=== PATIENT | female | born 1985 | race Caucasian/White ===

== ENCOUNTER → 2017-04-12 | Outpatient (CLI) | payer OTHER ==
--- NOTE | 2017-04-12 14:57 | US ---
EXAMINATION TYPE: US OB <= 14 wk fetus DATE OF EXAM: 04/12/2017 COMPARISON: NONE CLINICAL HISTORY: Z36 Confirm Dates. pt states complicated medical history involving chemotherapy; ir regular cycles, confirm dates EXAM PERFORMED: Transabdominal (TA) pelvic ultrasound. EXAM MEASUREMENTS: GESTATIONAL AGE / DATING Physician Established: not established yet Dates by LMP: uncertain lmp Dates by First Scan: no previous scan Dates by Current Scan for: (14 weeks/0 days) EDC: 10/11/2017 MATERNAL ANATOMY Uterus: 10.2 x 9.5 x 12.6cm Right Ovary: 4.5 x 1.6 x 2.7cm Left Ovary: 2.7 x 1.6 x 2.3cm Post CDS / Adnexa: wnl Presence of free fluid: no free fluid seen GESTATION / SURVEY CRL: 8.0cm (14 weeks/0 days) MSD: wnl Yolk Sac (normal less than 6mm): not seen Heart Rate: 161 bpm Rhythm: Normal IUP: Viable IUP Single live intrauterine gestation is confirmed as gestational sac and pole are seen. Yolk sac is not clearly identified. No free fluid is seen in pelvic cul-de-sac. Both ovaries are present. No concerning extraovarian adnexal masses are seen. IMPRESSION: Single live intrauterine gestation is confirmed, mean crown-rump length is 8.0 cm corresponding to a 14 week 0 day old fetus.
[2017-04-12 15:04] LABS: Glucose 86 mg/dL (74-99); Non-African American GFR(MDRD) >60 (>60 ml/min/1.73 sqM)
[2017-04-12 15:07] LABS: Appearance,Urine Clear (Clear); Bilirubin,Urine Negative (Negative); Glucose,Urine (UA) Negative (Negative); Ketones,Urine Negative (Negative); Leukocyte Esterase,Urine Negative (Negative); Nitrite,Urine Negative (Negative); PH, Urine 6.5 (5.0-8.0); Protein,Urine Negative (Negative); Specific Gravity,Urine 1.006 (1.001-1.035); UA Billing (MACRO vs. MICRO) CHEM; Urobilinogen,Urine <2.0 mg/dL (<2.0)
[2017-04-12 15:10] LABS: CHCM 34.3; HCT 40.5 % (34.0-46.0); HDW 2.31; HGB 13.8 gm/dL (11.4-16.0); MCH 31.9 pg (25.0-35.0); MCV 93.6 fL (80.0-100.0); RBC 4.32 m/uL (3.80-5.40); RDW 13.4 % (11.5-15.5); WBC 8.5 k/uL (3.8-10.6)
[2017-04-12 15:35] LABS: Hepatitis B Surface Ag Index 0.05
[2017-04-13 05:01] LABS: Toxoplasma Antibody (IgG) <3.0 IU/mL (<7.2)
[2017-04-13 07:30] LABS: HIV-1/HIV-2 Ab Screen NONREAC (NON REAC)
== END | disposition home or self-care (01) ==
LOC: RADUSWWP 13:43
PROVIDERS: ATTEND Obstetrics & Gynecology
DX: O26.811 Pregnancy related exhaustion and fatigue, first trimester (principal); R53.83 Other fatigue; Z3A.00 Weeks of gestation of pregnancy not specified
CPT/HCPCS: 36415; 76801; 81003; 82565; 82947; 85027; 86762; 86777; 86778; 86780; 86850; 86900; 86901; 87340; 87389

== ENCOUNTER → 2017-05-15 | Outpatient (CLI) | payer OTHER ==
[2017-05-16 08:23] LABS: Alpha Fetoprotein (M.O.M) 0.78 (Negative); B-HCG (M.O.M.) 0.64; Gestational Age (days) 5; Human Chorionic Gonadotropin 15.1 IU/mL; Inhibin A (M.O.M.) 1.34; Interpretation SeeBelow; Maternal Age at EDD (Yrs) 31; Smoker No; Unconjugated Estriol (M.O.M.) 1.06
== END | disposition home or self-care (01) ==
LOC: LABWHC1 17:24
PROVIDERS: ATTEND Obstetrics & Gynecology
DX: Z34.02 Encounter for supervision of normal first pregnancy, second trimester (principal); Z3A.00 Weeks of gestation of pregnancy not specified
CPT/HCPCS: 36415; 82105; 82677; 84702; 86336

== ENCOUNTER → 2017-07-18 | Outpatient (CLI) | payer OTHER | END | disposition home or self-care (01) | LOC: LABWHC1 17:31 | PROVIDERS: ATTEND Internal Medicine Endocrinology, Diabetes & Metabolism | DX: E03.8 Other specified hypothyroidism (principal) | CPT/HCPCS: 36415; 84443 ==

== ENCOUNTER 2017-08-25 13:39 | Observation (INO) | payer OTHER ==
--- NOTE | 2017-08-25 14:36 | XR ---
EXAMINATION TYPE: XR chest 2V DATE OF EXAM: 08/25/2017 COMPARISON: NONE HISTORY: Shortness of breath TECHNIQUE: Frontal and lateral views of the chest are obtained. FINDINGS: There is no focal air space opacity, pleural effusion, or pneumothorax seen. The cardiac silhouette size is within normal limits. The osseous structures are intact. IMPRESSION: No acute cardiopulmonary process.
[2017-08-25] MEDS ORDERED: methylPREDNISolone SOD SUCCI 125 MG/2 ML VIAL IV SCH (14:45)
[2017-08-25] MEDS: SODIUM CHLORIDE 0.9% 1,000 ML IV SCH (14:53)
[2017-08-25 15:34] LABS: Basophils % (A) 0 %; CH 29.3; CHCM 31.5; Eosinophils % (A) 0 %; HCT 38.1 % (34.0-46.0); HDW 2.84; HGB 12.2 gm/dL (11.4-16.0); Hypochromasia Slight; Luc # (Auto) 0.08; Luc % (Auto) 1; Lymphocytes # (A) 1.2 k/uL (1.0-4.8); Lymphocytes % (A) 11 %; MCHC 32.1 g/dL (31.0-37.0); Mean Platelet Volume 8.6; Monocytes # (A) 0.2 k/uL (0-1.0); Monocytes % (A) 2 %; Neutrophils # (A) 9.2 k/uL (1.3-7.7); Neutrophils % (A) 85 %; RBC 4.09 m/uL (3.80-5.40); RDW 13.2 % (11.5-15.5); WBC 10.7 k/uL (3.8-10.6); WBC (Perox) 11.76
[2017-08-25 15:37] LABS: MCV 93.3 fL (80.0-100.0)
[2017-08-25 15:54] VITALS: BP 125/75; RESP 18; TEMP 98; BMI 24.1
[2017-08-25] MEDS: IPRATROPIUM-ALBUTEROL 3 ML NEB INHALATION SCH ×2 (17:35→21:02)
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
[2017-08-25] MEDS ORDERED: guaiFENesin-DM 100-10MG/5ML 10 ML CUP PO PRN (19:36)
[2017-08-25] MEDS: FORMOTEROL FUMARATE 20 MCG/2 ML NEBU INHALATION SCH (21:02)
[2017-08-25] MEDS: BUDESONIDE 1 MG/2 ML NEBU INHALATION SCH (21:02)
[2017-08-25] MEDS: methylPREDNISolone SOD SUCCI 125 MG/2 ML VIAL IV SCH (21:03)
[2017-08-26] MEDS: methylPREDNISolone SOD SUCCI 125 MG/2 ML VIAL IV SCH ×3 (06:25→18:08)
[2017-08-26] MEDS: TIROSINT 50 MCG PO SCH (06:25)
[2017-08-26] MEDS: IPRATROPIUM-ALBUTEROL 3 ML NEB INHALATION SCH ×4 (08:22→21:07)
[2017-08-26] MEDS: BUDESONIDE 1 MG/2 ML NEBU INHALATION SCH ×2 (08:22→21:07)
[2017-08-26] MEDS: FORMOTEROL FUMARATE 20 MCG/2 ML NEBU INHALATION SCH ×2 (08:22→21:06)
--- NOTE | 2017-08-26 10:53 | P.PN ---
Progress Note - Text Progress Note Date: 08/26/17 Overall Christine is doing better. She still has a dry cough and some difficulty in breathing when her asthmatic bronchitis flares up but overall with the breathing treatments she feels significantly improved. We are awaiting a pulmonology consultation and when they feel she is stable for discharge will plan to discharge her to home likely with breathing treatments. I spent at least 15 minutes with Christine and her answering questions ranging from her breathing issues to labor process and she feels much more comfortable and reassured with the process of what decisions are going to be made moving forward. Her vital signs are otherwise stable and she is pulse ox 99%. Her heart is regular lungs continued to have a wheeze. heart tones been reactive in the 120s to 140s. Assessment intrauterine at 33 weeks. Asthmatic bronchitis. Plan continue care and await pulmonology consultation.
[2017-08-26] MEDS: IPRATROPIUM-ALBUTEROL 3 ML NEB INHALATION PRN ×2 (13:23→18:21)
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
[2017-08-26] MEDS: AZITHROMYCIN 250 MG TAB PO SCH (15:45)
[2017-08-26] MEDS: MONTELUKAST 10 MG TAB PO SCH (21:12)
[2017-08-26] MEDS: SODIUM CHLORIDE 0.9% 1,000 ML IV SCH (21:21)
[2017-08-27] MEDS: methylPREDNISolone SOD SUCCI 125 MG/2 ML VIAL IV SCH ×4 (00:16→18:55)
[2017-08-27] MEDS ORDERED: guaiFENesin SYRUP 100MG/5ML 200 MG/10 ML CUP PO PRN (01:22)
[2017-08-27] MEDS: guaiFENesin-Coden 100-10MG/5ML 10 ML CUP PO PRN ×4 (02:28→23:21)
[2017-08-27] MEDS: ACETAMINOPHEN TAB 325 MG TAB PO PRN ×4 (02:28→21:12)
[2017-08-27] MEDS: IPRATROPIUM-ALBUTEROL 3 ML NEB INHALATION PRN (04:10)
[2017-08-27] MEDS: TIROSINT 50 MCG PO SCH (06:31)
[2017-08-27] MEDS: FORMOTEROL FUMARATE 20 MCG/2 ML NEBU INHALATION SCH ×2 (07:26→19:55)
[2017-08-27] MEDS: BUDESONIDE 1 MG/2 ML NEBU INHALATION SCH ×2 (07:26→19:55)
[2017-08-27] MEDS: IPRATROPIUM-ALBUTEROL 3 ML NEB INHALATION SCH ×4 (07:26→19:55)
[2017-08-27] MEDS: SODIUM CHLORIDE 0.9% 1,000 ML IV SCH (10:27)
--- NOTE | 2017-08-27 13:19 | P.PN ---
Progress Note - Text Progress Note Date: 08/27/17 Patient overall from breathing standpoint appears better. She still has extreme wheeze and is requiring breathing treatments every 6 hours. Pulmonary has seen her this morning and believe she'll be here for 1-2 more days. We had a long discussion between she and her about use of number opioids and in general. A maps was run and it was found that she has filled since May 31 110 MS Contin's and to her and 70 Percocets as well as a few Tylenol No. 3 when she had a tooth problem. She has again assured me that she is taking them only intermittently and is now aware of the risks specifically with MS Contin particular if she is not taking them on a continuous basis she should not take them at all. She will discuss this further with her neurologist. She relates that she has been seeing him the entire time during on a monthly basis. She states that she did continue to refill the prescriptions because she was worried that they will stop prescribing them if she would if she does not continue to refill them and when she needed something for pain she felt it was better to have the medication near her or in the house rather than having to try and contact somebody for an emergency dose. A urine drug screen was done showing THC, opioids, as well as amphetamines. Amphetamine 's could be from a number of other medication she's been taking however since difficult to say if she denies taking any amphetamine-like products. She denies taking any other medicines or illicit substances at this time again. Assessment intrauterine at 33-1/2 weeks. Plan continue care for from respiratory standpoint improve her asthmatic bronchitis and plan discharged home in the next few days.
--- NOTE | 2017-08-27 13:45 | PN ---
PROGRESS NOTE Carmelita Schuster is a 32-year-old female who is about 33 weeks . I was called to see her because of an" asthma exacerbation". She did have childhood asthma, which was primarily exercise-induced. More recently, she has been having increasing shortness of breath. This seemed to reach peak for the last couple weeks or so. She has chest tightness, wheezing, cough and shortness of breath. Coughing up some phlegm. She is not sure what triggered it, possibly the colder weather and/or some environmental allergens such as ragweed or [place]. She also apparently has her boyfriend or significant other's cat and that has seemed to bother her more recently. The patient is doing much better today. She is feeling much better. She was placed on DuoNeb q.i.d. p.r.n. as well as formoterol and Pulmicort 1 mg twice a day. We also gave her Solu-Medrol 60 mg q.6h and I also added Singulair 10 mg at bedtime. Anyway the patient is not ready for discharge nor is she back to baseline. She also has a history of small-vessel vasculitis for which she was treated for corticosteroids and mycophenolate mofetil for quite a long period of time. In addition, she has a history of hypothyroidism. She has a previous history of Graves disease and some chronic back issues as well as some motor sensory abnormalities to the left leg. PHYSICAL EXAMINATION: Current vital signs include temperature 98, heart rate 88, respiratory rate 18, blood pressure 125/75, room air saturation 99%. Mean arterial pressure is 91. Appears in no acute distress. HEENT examination is grossly unremarkable. Mucous membranes are moist. No oral lesions. Neck is supple. Cardiovascular examination reveals regular rhythm and rate. S1, S2 normal. No murmur. Lungs reveal some expiratory wheezes and rhonchi. Breath sounds are improved. There is better aeration. There is prolongation on forced maneuver. She wheezes and coughs on forced maneuver. Abdomen reveals a gravid uterus. No tenderness. Bowel sounds are heard. Extremities are intact. No edema. Skin without rash. Neurologic examination is brief but nonfocal. LABORATORY DATA: No significant labs noted except for drug screen was done. Shows to be positive for opiates, amphetamines and marijuana. Microbiology is negative. Medications are reviewed. Chest x-ray was reviewed. ASSESSMENT: 1. Asthma exacerbation complicated by by purulent tracheobronchitis. 2. Intrauterine , 33 weeks. 3. History of acute bronchitis. 4. Hypothyroidism. 5. Small-vessel vasculitis. PLAN: We will continue to follow. No additional recommendations were made. Prognosis is guarded. MMODL / IJN: [id number] /
[2017-08-27] MEDS: AZITHROMYCIN 250 MG TAB PO SCH (17:01)
[2017-08-27] MEDS: MONTELUKAST 10 MG TAB PO SCH (21:12)
[2017-08-28] MEDS: methylPREDNISolone SOD SUCCI 125 MG/2 ML VIAL IV SCH ×3 (00:34→12:40)
[2017-08-28] MEDS: ACETAMINOPHEN TAB 325 MG TAB PO PRN ×3 (01:13→12:49)
[2017-08-28] MEDS: IPRATROPIUM-ALBUTEROL 3 ML NEB INHALATION PRN (04:12)
[2017-08-28] MEDS: guaiFENesin-Coden 100-10MG/5ML 10 ML CUP PO PRN ×2 (05:03→12:48)
[2017-08-28] MEDS: TIROSINT 50 MCG PO SCH (06:34)
[2017-08-28] MEDS: IPRATROPIUM-ALBUTEROL 3 ML NEB INHALATION SCH ×3 (08:35→15:53)
[2017-08-28] MEDS: FORMOTEROL FUMARATE 20 MCG/2 ML NEBU INHALATION SCH (08:35)
[2017-08-28] MEDS: BUDESONIDE 1 MG/2 ML NEBU INHALATION SCH (08:35)
[2017-08-28] MEDS ORDERED: CYANOCOBALAMIN 1,000 MCG/ML 1 ML VIAL IM ONE (08:47)
--- NOTE | 2017-08-28 09:12 | P.PN ---
Progress Note - Text Progress Note Date: 08/28/17 Christine appears about the same today as yesterday. Still having some wheezing she is seen during her breathing treatments her breathing is relatively good at this time however. She does complain of increasing pressure and some lateral pain on her uterus consistent with round ligament pain with C no contractions on monitor we had her monitored in the babies had reactive NSTs in the 140s. She is scheduled to see MFM tomorrow we will speak with them probably today or tomorrow morning and likely reschedule that appointment as needed. We'll defer decisions on discharge and progress to pulmonology. From an obstetrical standpoint at this time she is relatively stable. She is still very high risk and at 33-1/2 weeks significantly premature as well. Continue current care.
[2017-08-28 16:00] VITALS: PULSE 92
--- NOTE | 2017-08-28 18:03 | P.PN ---
Subjective Progress Note Date: 08/28/17 This is a very pleasant 32-year-old female who is about 33 weeks . She' s been just one time. She was admitted by the [facility] [employer] [employer] doctor. She came in with appears to be an asthma attack. She apparently had asthma as a child. She had exercise-induced asthma. More recently, she's been having difficulty with her breathing. Over the last week or so, she had a full-blown asthma exacerbation. She had chest tightness wheezing coughing and shortness of breath. Not bringing up much or any phlegm. Not sure exactly what triggered it. Prior to this her asthma has been relatively inactive. Anyway the patient's currently in the hospital. We are asked to see her. Yesterday we prescribed her albuterol and ipratropium bromide along with formoterol and budesonide. We also put her on Solu-Medrol. The patient seemed be doing a lot better but certainly not anywhere close to being discharged. The patient has a history of small vessel vasculitis as well as a history of hypothyroidism hypothyroidism. In addition, she has a history of Graves' disease. She also some chronic back issues and some issues with a sensory/motor deficit to her left lower extremity. She is a lifelong nonsmoker. Has been seen in the past at the [facility] in [place]. There she was being treated with a drug called CellCept for her small vessel vasculitis. On 08/28/2017 I'm seeing this patient for a follow-up. She is feeling better , less short of breath compared to yesterday. She continues to have some limited congested cough yet overall the patient is feeling much better. No fever chills or night sweats. No hemoptysis no pleurisy. She is at her 34th week of gestation. She is a smoker and she claims that she has not smoked since her . Her urine drug screen was positive for amphetamines and THC. Overall condition is improved and I think she is good to go from the pulmonary standpoint as long as there is no other [employer] Objective - Vital Signs Vital signs: Vital Signs Temp 98.0 F 08/25/17 13:59 Pulse 92 08/28/17 16:10 Resp 18 08/25/17 13:59 BP 125/75 08/25/17 13:59 Pulse Ox - Exam No acute distress, oriented 3. HEENT examination is grossly unremarkable. Mucous membranes are moist. No oral lesions. Neck supple. Full range of motion. No adenopathy thyromegaly or neck vein distention. Cardiovascular examination reveals regular rhythm rate. S1-S2 normal. No S3 or S4. No discernible murmur noted. Lungs reveal coarse inspiratory and expiratory rhonchi and wheezes. Breath sounds are diminished. This prolongation on forced maneuver. The patient wheezes and coughs on forced maneuver.. Abdomen soft and bowel sounds are heard. The patient obviously is and has a gravid uterus. Extremities are intact. No cyanosis clubbing or edema. Skin is without rash or lesion. Neurologic examination is brief but nonfocal. - Labs CBC & Chem 7: 08/25/17 14:51 Assessment and Plan Plan: Assessment 1 acute rhonchi to 6 exacerbating an underlying asthmatic disorder, improving. Chest x-rays clear. The patient on Zithromax and IV Solu-Medrol. 2 intrauterine at her 34th week of gestation 3 hypothyroidism 4 history of small vessel vasculitis maintained on CellCept on outpatient basis 5 marijuana smoking Plan The patient can be discharged home on a prednisone burst taper and a course of Zithromax to complete a total of 5 day course. We will arrange a home nebulizer for this patient. The patient will utilize a little neb last treatment on an as-needed basis. Contact back there be any difficulty breathing following her discharge. She is clear for discharge from a pulmonary standpoint. Please obtain a clearance from Dr. Pagan to make sure the patient has no [employer] related issues or needs.
--- NOTE | 2017-09-01 09:04 | P.DS ---
Providers Date of admission: 08/25/17 13:39 Expected date of discharge: 08/28/17 Attending physician: Kevin Dalal Consults: 08/25/17 14:24 Consult Physician Stat Consulting Provider: Silvestre Montejo Consult Reason/Comments: Acute asthmatic Bronchitis Do you want consulting provider notified?: Already Contacted Primary care physician: Stated None Hospital Course: Overall Christine is doing well. Her breathing has improved dramatically and she is having better oxygen exchange. She is still quite a short of breath and pulmonary has provided her with breathing therapy treatments at home. She will be discharged home on with instructions to follow up with me on Monday. She has an appointment with [facility] tomorrow. We'll discuss with [facility] current status and evaluate for any changes. Her vital signs otherwise stable and afebrile and her heart is regular. heart tones have been reactive in the 140s to 150s. No contractions are noted. She hasn't point with Dr. wise on 09 06 for reevaluation. All other questions are answered for her at this time and we'll plan discharged home today with instructions to return should she have any worsening of symptoms or other issues. Patient Condition at Discharge: Stable Plan - Discharge Summary New Discharge Prescriptions: No Action Levothyroxine Sodium [Tirosint] 200 mcg PO DAILY Pnv,Calcium 72/Iron/Folic Acid [ Plus Tablet] 1 tab PO DAILY oxyCODONE-APAP 10-325MG [Percocet 10-325 mg] 1 tab PO DIRECTED PRN PRN Reason: pain Morphine Sulfate ER [Ms Contin] 15 mg PO DIRECTED PRN PRN Reason: Pain Discharge Medication List Levothyroxine Sodium [Tirosint] 200 mcg PO DAILY 08/25/17 [History] Morphine Sulfate ER [Ms Contin] 15 mg PO DIRECTED PRN 08/25/17 [History] Pnv,Calcium 72/Iron/Folic Acid [ Plus Tablet] 1 tab PO DAILY 08/25/17 [ History] oxyCODONE-APAP 10-325MG [Percocet 10-325 mg] 1 tab PO DIRECTED PRN 08/25/17 [ History] Follow up Appointment(s)/Referral(s): Silvestre Montejo DO [Doctor of Osteopathic Medicine] - 09/06/17 10:30 am Patient Instructions/Handouts: Asthma (DC) Activity/Diet/Wound Care/Special Instructions: Scripts for Albuterol, Zithromax, and steroid taper in [facility] - 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
--- NOTE | 2017-09-06 08:44 | P.DS ---
Providers Date of admission: 08/25/17 13:39 Expected date of discharge: 08/28/17 Attending physician: Kevin Dalal Consults: 08/25/17 14:24 Consult Physician Stat Consulting Provider: Silvestre Montejo Consult Reason/Comments: Acute asthmatic Bronchitis Do you want consulting provider notified?: Already Contacted Primary care physician: Stated None Hospital Course: Mitzi discharged home in stable condition. She is 34 weeks and wall her breathing still is somewhat wheezy pulmonology believe she can be discharged home. heart tones have been reactive in the 140s and otherwise she is feeling much improved. Vital signs are stable and afebrile. Heart regular, abdomen soft and nontender with positive bowel sounds. Lungs as above and her pulmonology who are currently managing her acute asthmatic bronchitis. Extremities are without pain. Assessment intrauterine 34 weeks with acute asthmatic bronchitis. Plan discharged home follow up with me in the next few days. She's been being discharged home on breathing treatments and antibiotics. Plan - Discharge Summary New Discharge Prescriptions: No Action Levothyroxine Sodium [Tirosint] 200 mcg PO DAILY Pnv,Calcium 72/Iron/Folic Acid [ Plus Tablet] 1 tab PO DAILY oxyCODONE-APAP 10-325MG [Percocet 10-325 mg] 1 tab PO DIRECTED PRN PRN Reason: pain Morphine Sulfate ER [Ms Contin] 15 mg PO DIRECTED PRN PRN Reason: Pain Discharge Medication List Levothyroxine Sodium [Tirosint] 200 mcg PO DAILY 08/25/17 [History] Morphine Sulfate ER [Ms Contin] 15 mg PO DIRECTED PRN 08/25/17 [History] Pnv,Calcium 72/Iron/Folic Acid [ Plus Tablet] 1 tab PO DAILY 08/25/17 [ History] oxyCODONE-APAP 10-325MG [Percocet 10-325 mg] 1 tab PO DIRECTED PRN 08/25/17 [ History] Follow up Appointment(s)/Referral(s): Silvestre Montejo DO [Doctor of Osteopathic Medicine] - 09/06/17 10:30 am Patient Instructions/Handouts: Asthma (DC) Activity/Diet/Wound Care/Special Instructions: Scripts for Albuterol, Zithromax, and steroid taper in [facility] - case picker before 7pm Discharge Disposition: HOME SELF-CARE
== END 2017-08-28 18:00 | disposition home or self-care (01) ==
LOC: 4FBP 13:39
PROVIDERS: ADMIT Obstetrics & Gynecology; ATTEND Obstetrics & Gynecology
DX: O99.513 Diseases of the respiratory system complicating pregnancy, third trimester (principal); J45.901 Unspecified asthma with (acute) exacerbation; O99.283 Endocrine, nutritional and metabolic diseases complicating pregnancy, third trimester; E03.9 Hypothyroidism, unspecified; O99.413 Diseases of the circulatory system complicating pregnancy, third trimester; I77.6 Arteritis, unspecified; G89.29 Other chronic pain; Z3A.34 34 weeks gestation of pregnancy; O99.333 Smoking (tobacco) complicating pregnancy, third trimester; F17.200 Nicotine dependence, unspecified, uncomplicated; O99.323 Drug use complicating pregnancy, third trimester; F12.90 Cannabis use, unspecified, uncomplicated; F11.90 Opioid use, unspecified, uncomplicated; Z79.899 Other long term (current) drug therapy; Z88.0 Allergy status to penicillin; Z88.1 Allergy status to other antibiotic agents; Z88.2 Allergy status to sulfonamides; Z88.8 Allergy status to other drugs, medicaments and biological substances; Z91.030 Bee allergy status; Z91.018 Allergy to other foods
CPT/HCPCS: 96376 ×4; 96372; 96374; 94640 ×8; 85025; 80306; 87502; 71020; G0379; G0378 ×4; J3420; J2930 ×4

== ENCOUNTER → 2017-10-24 | Outpatient (CLI) | payer OTHER | END | disposition home or self-care (01) | LOC: LABWHC1 16:10 | PROVIDERS: ATTEND Internal Medicine Endocrinology, Diabetes & Metabolism | DX: E03.8 Other specified hypothyroidism (principal) | CPT/HCPCS: 36415; 84443 ==

== ENCOUNTER → 2018-01-29 | Outpatient (CLI) | payer OTHER | END | disposition home or self-care (01) | LOC: LABWHC1 12:16 | PROVIDERS: ATTEND Internal Medicine Endocrinology, Diabetes & Metabolism | DX: E03.8 Other specified hypothyroidism (principal) | CPT/HCPCS: 36415; 84443 ==